=== PATIENT | female | born 1990 | race Caucasian/White ===

== ENCOUNTER 2024-12-13 19:50 | Emergency (ER) | payer BC ==
[~2024-12-13] VITALS: Ht 170.2 cm; Wt 81.8 kg
[2024-12-13] MEDS ORDERED: Ondansetron 4 MG/2 ML VIAL IV ONE (20:15)
[2024-12-13] MEDS ORDERED: LORazepam 2 MG/ML VIAL IV ONE (20:15)
[2024-12-13] MEDS ORDERED: NS 1,000 ML IV SCH ×2 (20:15→21:45)
[2024-12-13 20:42] LABS: BASO # 0.03 K/mm3 (0.02-0.10); EOS # 0.01 K/mm3 (0.04-0.40); EOS % 0.1 % (1.0-5.0); HEMATOCRIT 44.2 % (37.0-47.0); HEMOGLOBIN 14.9 g/dL (12.5-16.0); LYMPH# 2.32 K/mm3 (1.50-4.00); MEAN CELL VOLUME 94 fl (78-100); MEAN CORPUSCULAR HEMOGLOBIN 32 pg (27-31); MEAN CORPUSCULAR HGB CONC 34 g/dL (33-37); MEAN PLATELET VOLUME 9.7 fl (7.4-10.4); MONO # 0.37 K/mm3 (0.20-0.80); PLATELET COUNT 275 K/mm3 (130-400); RED BLOOD COUNT 4.68 M/mm3 (4.10-5.30); RED CELL DISTRIBUTION WIDTH 13.1 % (11.5-14.5); WHITE BLOOD COUNT 7.6 K/mm3 (4.8-10.8)
[2024-12-13 20:50] LABS: ALBUMIN 4.5 g/dL (3.5-5.0)
[2024-12-13 20:52] LABS: CALCIUM 8.7 mg/dL (8.3-10.5)
[2024-12-13 20:53] LABS: TOTAL PROTEIN 7.4 g/dL (6.4-8.3)
[2024-12-13 20:55] LABS: TOTAL BILIRUBIN 0.2 mg/dL (0.2-1.2)
[2024-12-13 20:59] LABS: MAGNESIUM 1.89 mg/dL (1.60-2.60)
[2024-12-13 21:06] LABS: PARTIAL THROMBOPLASTIN TIME 22.7 SECONDS (21.0-32.0); PROTHROMBIN TIME 8.7 SECONDS (9.0-12.0)
[2024-12-13 21:51] LABS: URINE APPEARANCE CLEAR (CLEAR); URINE BILIRUBIN NEGATIVE (NEGATIVE); URINE BLOOD NEGATIVE (NEGATIVE); URINE COLOR YELLOW (YELLOW); URINE GLUCOSE NEGATIVE (NEGATIVE); URINE KETONE NEGATIVE (NEGATIVE); URINE LEUKOCYTE ESTERASE NEGATIVE (NEGATIVE); URINE NITRATE NEGATIVE (NEGATIVE); URINE PROTEIN(semi-quant) NEGATIVE (NEGATIVE)
[2024-12-13 21:54] LABS: URINE WBC 0-1 /hpf (0-3)
[2024-12-13] MEDS ORDERED: ONDANSETRON HYDR4 MG PO (23:13)
[2024-12-13] MEDS ORDERED: LORazepam 0.5 MG TABLET PO ONE (23:15)
[2024-12-13 23:27] VITALS: BP 115/78
== END 2024-12-13 23:28 | disposition home or self-care (01) ==
LOC: ED 19:50
PROVIDERS: Nurse Practitioner
DX: F10.139 Alcohol abuse with withdrawal, unspecified (principal)
CPT/HCPCS: J2060; J2405; J7030

== ENCOUNTER 2025-01-13 17:58 | Emergency (ER) | payer OTHER ==
[~2025-01-13] VITALS: Ht 162.6 cm; Wt 76.6 kg
[~2025-01-13 17:58] MED LIST changes: -AMOXIL500 M1 PO; -BUSPIRONE HYDRO10 MG PO; -DUPIXENT300 MG/2 M; -FAMOTIDINE40 M1 PO; -FLUOXETINE HCL20 MG PO; -HYDROXYZINE HCL25 M1 PO; -NALTREXONE HYDR50 MG PO; -OXCARBAZEPINE150 M1 PO; -PANTOPRAZOLE SO40 MG PO; -REMERON15 MG PO; -SPIRONOLACTONE100 MG PO; -TACROLIMUS 0.1% TP; -TEMOVATE OINT30 GM TOP; -ZITHROMAX Z PA250 MG PO; -ZOVIRAX400 MG PO
[2025-01-13 18:03] VITALS: BP 143/86
[2025-01-13] MEDS ORDERED: FAMOTIDINE40 M1 PO (18:07)
[2025-01-13] MEDS ORDERED: ZOVIRAX400 MG PO (18:07)
[2025-01-13] MEDS ORDERED: OXCARBAZEPINE150 M1 PO (18:07)
[2025-01-13] MEDS ORDERED: FLUOXETINE HCL20 MG PO (18:07)
[2025-01-13] MEDS ORDERED: SPIRONOLACTONE100 MG PO (18:08)
[2025-01-13] MEDS ORDERED: NALTREXONE HYDR50 MG PO (18:08)
[2025-01-13] MEDS ORDERED: BUSPIRONE HYDRO10 MG PO (18:08)
[2025-01-13] MEDS ORDERED: REMERON15 MG PO (18:08)
[2025-01-13] MEDS ORDERED: PANTOPRAZOLE SO40 MG PO (18:08)
[2025-01-13] MEDS ORDERED: HYDROXYZINE HCL25 M1 PO (18:09)
[2025-01-13] MEDS ORDERED: TEMOVATE OINT30 GM TOP (18:09)
[2025-01-13] MEDS ORDERED: TACROLIMUS 0.1% TP (18:09)
[2025-01-13] MEDS ORDERED: DUPIXENT300 MG/2 M (18:10)
[2025-01-13] MEDS ORDERED: Iohexol 300 - 100 ML VIAL IV ONE (19:14)
[2025-01-13] MEDS ORDERED: AMOXIL500 M1 PO (19:38)
[2025-01-13] MEDS ORDERED: ZITHROMAX Z PA250 MG PO (19:38)
[2025-01-13] MEDS ORDERED: Amoxicillin 250 MG CAP PO ONE (19:45)
[2025-01-13] MEDS ORDERED: Azithromycin 250 MG TAB PO ONE (19:45)
== END 2025-01-13 20:05 | disposition home or self-care (01) ==
LOC: ED 17:58
DX: J06.9 Acute upper respiratory infection, unspecified (principal); R79.89 Other specified abnormal findings of blood chemistry; F17.210 Nicotine dependence, cigarettes, uncomplicated
CPT/HCPCS: Q9967

== ENCOUNTER → 2025-01-13 | Outpatient (CLI) | payer OTHER ==
[~2025-01-13] MED LIST: AMOXIL500 M1 PO; BUSPIRONE HYDRO10 MG PO; DUPIXENT300 MG/2 M; FAMOTIDINE40 M1 PO; FLUOXETINE HCL20 MG PO; HYDROXYZINE HCL25 M1 PO; NALTREXONE HYDR50 MG PO; ONDANSETRON HYDR4 MG PO; OXCARBAZEPINE150 M1 PO; PANTOPRAZOLE SO40 MG PO; REMERON15 MG PO; SPIRONOLACTONE100 MG PO; TACROLIMUS 0.1% TP; TEMOVATE OINT30 GM TOP; ZITHROMAX Z PA250 MG PO; ZOVIRAX400 MG PO
[2025-01-13 16:11] LABS: BASO # 0.02 K/mm3 (0.02-0.10); EOS # 0.08 K/mm3 (0.04-0.40); EOS % 0.9 % (1.0-5.0); HEMATOCRIT 37.1 % (37.0-47.0); HEMOGLOBIN 12.5 g/dL (12.5-16.0); LYMPH# 0.73 K/mm3 (1.50-4.00); MEAN CELL VOLUME 97 fl (78-100); MEAN CORPUSCULAR HEMOGLOBIN 33 pg (27-31); MEAN CORPUSCULAR HGB CONC 34 g/dL (33-37); MEAN PLATELET VOLUME 9.6 fl (7.4-10.4); MONO # 0.44 K/mm3 (0.20-0.80); NEU # 7.67 K/mm3 (1.40-6.50); PLATELET COUNT 229 K/mm3 (130-400); RED BLOOD COUNT 3.83 M/mm3 (4.10-5.30); RED CELL DISTRIBUTION WIDTH 12.5 % (11.5-14.5)
[2025-01-13 17:42] LABS: D-DIMER 4.77 mg/L FEU (0.15-0.50)
== END ==
LOC: LAB 15:55
PROVIDERS: Nurse Practitioner Family
DX: R06.02 Shortness of breath (principal); R06.00 Dyspnea, unspecified; Z20.822 Contact with and (suspected) exposure to COVID-19